=== PATIENT | female | born 1965 | race Caucasian/White ===

== ENCOUNTER 2018-02-28 08:20 | Emergency (ER) | payer MEDICARE ==
[~2018-02-28] VITALS: Ht 167.6 cm; Wt 81.6 kg
[~2018-02-28 08:20] MED LIST: DEX4T; [UNRECOGNIZED DRUG - CODE]
[2018-02-28 08:36] VITALS: BP 160/89
[2018-02-28] MEDS ORDERED: KETOROLAC TROMETH 60MG/2ML VIAL IM ONE (09:15)
== END 2018-02-28 10:02 | disposition home or self-care (01) ==
LOC: ER 08:20
DX: S39.012A Strain of muscle, fascia and tendon of lower back, initial encounter (principal); M79.1 Myalgia; E11.9 Type 2 diabetes mellitus without complications; X50.0XXA Overexertion from strenuous movement or load, initial encounter; Y93.89 Activity, other specified; Y99.8 Other external cause status; Y92.89 Other specified places as the place of occurrence of the external cause
CPT/HCPCS: 96372; 99283; J1885